=== PATIENT | female | born 1985 | race Caucasian/White ===

== ENCOUNTER 2023-03-28 13:04 | Emergency (ER) | payer OTHER, SELFPAY ==
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
[2023-03-28 13:17] VITALS: BP 110/70; PULSE 98; O2SAT 97
[2023-03-28 13:51] VITALS: BP 97/63; PULSE 78; RESP 15; TEMP 36.7; O2SAT 99; BMI 20.1
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
[2023-03-28 14:57] VITALS: BP 106/57; PULSE 75; RESP 16; O2SAT 96
--- NOTE | 2023-03-28 15:00 | PC.NURSE ---
Pt still sleepy but arousable and able to follow commands. when asked why she is so sleepy, pt reports not sleeping well last night.
--- NOTE | 2023-03-28 15:04 | PC.NURSE ---
Spoke to ct to take pt next.
[2023-03-28 15:20] VITALS: BP 141/73; PULSE 74; RESP 18; TEMP 36.3; O2SAT 98; BMI 39.6
--- NOTE | 2023-03-28 15:22 | PC.NURSE ---
Pt transported to CT
[2023-03-28 16:31] VITALS: BP 104/68; PULSE 50; RESP 12; O2SAT 99
== END 2023-03-28 18:10 | disposition home or self-care (01) ==
PROVIDERS: Emergency Provider Emergency Medicine Emergency Medical Services
DX: Z04.1 Encounter for examination and observation following transport accident (principal); R51.9 Headache, unspecified
CPT/HCPCS: 70450; 72125; 99284